=== PATIENT | female | born 1985 | race Caucasian/White ===

== ENCOUNTER 2017-03-06 22:33 | Emergency (ER) | payer OTHER ==
[~2017-03-06] VITALS: Ht 162.6 cm; Wt 95.5 kg
[~2017-03-06 22:33] MED LIST: ACET500C5 PO; ALPR0.25 PO; CALC500T12 PO; CLOT30CR24 TOP; FAMO20TA18 PO; FLUC150T17 PO; FLUC150T41 PO; HYDR-3498 PO; IBUP-1542 PO; IBUP800T25 PO; LORA-441 PO; LORA1TAB54 PO; MICO24CM3 VAG; MULTI PO; NITR-58 PO; OMEP20CA9 PO; ONDA8TAB9 PO
[2017-03-06 23:59] VITALS: Ht 162.6 cm; Wt 95.5 kg
[2017-03-07] MEDS ORDERED: CLOT45CR19 VAG (03:29)
[2017-03-07] MEDS ORDERED: FLUC150T17 PO (03:29)
[2017-03-07] MEDS ORDERED: IBUP-1542 PO (03:29)
[2017-03-07] MEDS ORDERED: IBUPROFEN 600 MG TAB PO ONE (03:30)
--- NOTE | 2017-03-07 03:56 | ERD ---
ER Documentation Chief Complaint Date/Time DATE: 03/07/17 TIME: 03:54 Chief Complaint ABCESS TO LEFT UNDERARM +ATB C/O VAGINAL ITCHING HPI 31-year-old female presents here in emergency department for complaints of vaginal itching, patient has history of his infection from before, feels the same way. Patient states that it got worse after taking antibiotics, patient is currently on Keflex for lymphadenopathy on the left axillary area, patient wants it also to be checked. Patient's complaining of a lump on the left axillary area, is complaining of pain throbbing pain 4/10 scale, is worse upon touching the area, the inflammation and swelling has improved. Patient denies any open wounds. Patient denies any fever or chills. Patient denies dysuria or hematuria. Patient denies any flank pain. She denies any abdominal pain. ROS All systems reviewed and are negative except as per history of present illness. Medications Home Meds Active Scripts Ibuprofen* (Motrin*) 600 Mg Tab, 600 MG PO Q6H Y for PAIN AND OR ELEVATED TEMP, #30 TAB Prov:KAREN MOELLER NP 03/07/17 Clotrimazole* (Clotrimazole-7*) Vaginal Cream..g., 1 APPLIC VAG HS for 7 Days, EA Prov:KAREN MOELLER NP 03/07/17 Fluconazole* (Diflucan*) 150 Mg Tablet, 150 MG PO ONCE, #1 TAB Prov:KAREN MOELLER NP 03/07/17 Loratadine/Pseudoephedrine* (Claritin-D* 12 Hr) 5-120 Mg Tab.er.12h, 1 TAB PO Q12, #10 TAB.SA Prov:ZHOU DAVILA PA-C 09/11/15 Acetaminophen* (Tylophen*) 500 Mg Capsule, 1 CAP PO Q6H Y for PAIN AND OR ELEVATED TEMP, #20 CAP Prov:ZHOU DAVILA PA-C 09/11/15 Ibuprofen* (Ibuprofen*) 800 Mg Tablet, 800 MG PO Q6H Y for PAIN, #30 TAB Prov:ZHOU DAVILA PA-C 09/11/15 Clotrimazole* (Clotrimazole* AF) 1% - 30 Gm Cream.gm., 1 APPLIC TOP BID, #1 TUB Prov:FREDERICK DALTON PA-C 07/13/15 Fluconazole* (Fluconazole*) 150 Mg Tablet, 150 MG PO DAILY, #2 TAB take 1 tab on day 1. Repeat tab #2 72 hours later. Prov:FREDERICK DALTON PA-C 07/13/15 Miconazole Nitrate* (Monistat 3*) 24 Gm Cmb.pf.crm, 1 APPFUL VAG HS for 3 Days, TUB X 3 Prov:KIERAN WHITMAN 06/23/15 Fluconazole* (Diflucan*) 150 Mg Tablet, 150 MG PO ONCE, #1 TAB Prov:KIERAN WHITMAN 06/23/15 Nitrofurantoin Monohyd Macrocr* (Macrobid*) 100 Mg Capsr, 100 MG PO BID for 7 Days Prov:KIERAN WHITMAN 06/23/15 Fluconazole* (Diflucan*) 150 Mg Tablet, 150 MG PO ONCE, #2 TAB Prov:REMINGTON SALAZAR 05/28/15 Lorazepam* (Ativan*) 0.5 Mg Tablet, 0.5 MG PO Q8, #3 Prov:FREDERICK DALTON PA-C 05/09/15 Fluconazole* (Diflucan*) 150 Mg Tablet, 150 MG PO ONCE, #2 TAB take 1 tab today, repeat second tab in 72 hours. Prov:FREDERICK DALTON PA-C 05/09/15 Alprazolam* (Xanax*) 0.25 Mg Tablet, 0.25 MG PO Q8H Y for ANXIETY, #3 TAB Prov:FREDERICK DALTON PA-C 04/20/15 Clotrimazole* (Clotrimazole* AF) 1% - 30 Gm Cream.gm., 1 APPLIC TOP BID for 7 Days, TUB Prov:KAREN MOELLER NP 04/07/15 Reported Medications Calcium Carbonate* ([place]-500*) 1 Tab Tablet, 1 TAB PO DAILY, TAB 11/09/14 Multivitamins* (Theragran*) 1 Tab Tab, 1 TAB PO DAILY, TAB 11/09/14 Famotidine* (Famotidine*) 20 Mg Tablet, 20 MG PO BID, TAB 11/09/14 Hydrocodone Bit-Acetaminophen* ([place]*) 5-325 Mg Tab, 1-2 TAB PO Q6 Y for PAIN, TAB 10/23/14 Ondansetron Hcl* (Zofran*) 8 Mg Tablet, 8 MG PO Q8 Y for NAUSEA AND OR VOMITING , TAB 10/23/14 Omeprazole* (Prilosec*) 20 Mg Capsule.dr, 20 MG PO QAM AC BREAKFAST, CAP 10/23/14 Ibuprofen* (Ibuprofen*) 600 Mg Tablet, 600 MG PO Q6H Y for PAIN, TAB 09/26/14 Allergies Allergies: Coded Allergies: No Known Allergies (Verified Allergy, Mild, 09/11/15) PMhx/Soc Medical and Surgical Hx: pt denies Medical Hx, pt denies Surgical Hx History of Surgery: No Anesthesia Reaction: No Hx Neurological Disorder: No Hx Respiratory Disorders: No Hx Cardiac Disorders: No Hx Psychiatric Problems: No Hx Miscellaneous Medical Probl: No Hx Alcohol Use: No Hx Substance Use: No Hx Tobacco Use: No Smoking Status: Never smoker FmHx Family History: No coronary disease, No diabetes, No other Physical Exam Vitals Vital Signs Date Time Temp Pulse Resp B/P Pulse Ox O2 Delivery O2 Flow Rate FiO2 03/06/17 23:59 97.7 76 18 117/76 100 Physical Exam GENERAL: The patient is well developed and appropriate for usual state of health, in no apparent distress. CHEST: Clear to auscultation bilaterally. There are no rales, wheezes or rhonchi. HEART: Regular rate and rhythm. No murmurs, clicks, rubs or gallops. No S3 or S4. ABDOMEN: Soft, nontender and nondistended. Good bowel sounds. No rebound or guarding. No gross peritonitis. No gross organomegaly or masses. No Puentes sign or McBurney point tenderness. BACK: No midline or flank tenderness. EXTREMITIES: Equal pulses bilaterally. There is no peripheral clubbing, cyanosis or edema. No focal swelling or erythema. Full range of motion. Grossly neurovascularly intact. No palpable lymphadenopathy, upon evaluation of the left axillary area, no palpable inflamed lymph node, no tenderness on palpation was noted on the axillary area. NEURO: Alert and oriented. Cranial nerves 2-12 intact. Motor strength in all 4 extremities with 5/5 strength. Sensation grossly intact. Normal speech and gait. SKIN: There is no apparent rash or petechia. The skin is warm and dry. HEMATOLOGIC AND LYMPHATIC: There is no evidence of excessive bruising or lymphedema. No gross cervical, axillary, or inguinal lymphadenopathy. Results 24 hrs Current Medications Medications (Trade) Dose Ordered Sig/Alesia Route PRN Reason Start Time Stop Time Status Last Admin Dose Admin Ibuprofen (Motrin) 600 mg ONCE ONCE PO 03/07/17 03:30 03/07/17 03:31 DC 03/07/17 03:16 Patient was given medication for pain here in emergency department, after treatment, patient verbalized feeling much better. Patient's pain is improved. Procedures/MDM Medical decision making: Patient's itching in the vaginal area most active consistent with vaginal candidiasis. Patient was given Diflucan Clotrimazole 1% intravaginal suppository to help with symptoms. Patient left axillary lump most likely from lymphadenopathy, no palpable lump at this time, mild tenderness on palpation, no redness noted, no symptoms of any folliculitis or abscess. Patient is advised to follow with primary care doctor in 2 days for reevaluation of symptoms. Patient is advised to return to emergency department for any worsening symptoms. Departure Diagnosis: Primary Impression: Lymphadenopathy Additional Impression: Yeast vaginitis Condition: Stable Patient Instructions: Vaginitis, Abby KAREN MOELLER NP March 07, 2017 03:56
== END 2017-03-07 03:41 | disposition home or self-care (01) ==
LOC: FTE 22:33
DX: R59.1 Generalized enlarged lymph nodes (principal); B37.3 Candidiasis of vulva and vagina
CPT/HCPCS: 99284